=== PATIENT | female | born 1975 | race Two or more races ===

== ENCOUNTER 2025-04-26 23:18 | Inpatient (IN) | payer MEDICAID, OTHER ==
[~2025-04-26] VITALS: Ht 157.5 cm; Wt 98.5 kg
[2025-04-27] VITALS (7 sets, daily range): BP systolic 139–181; BP diastolic 9–96; PULSE 72–104; RESP 16–20; TEMP 97.7–99.5; O2SAT 95–98
[2025-04-27 00:03] LABS: Basophils # (auto) 0 10 ^3/uL (0-0.2); Basophils % (auto) 0.2 % (0.0-2.0); Eosinophils # (auto) 0 10 ^3/uL (0-0.8); Eosinophils % (auto) 0.2 % (0.0-7.0); Hematocrit 43.8 % (36.0-46.0); Hemoglobin 14.7 g/dL (12.2-16.2); Lymphocytes # (auto) 1.2 10 ^3/uL (0.4-5.4); Mean Corpuscular Hemoglobin 29.1 pg (28.0-32.0); Mean Corpuscular Hgb Conc. 33.6 g/dL (32.0-36.0); Mean Corpuscular Volume 86.6 fL (80.0-100.0); Monocytes % (auto) 7.3 % (0.0-12.0); Neutrophils # (auto) 11.4 10 ^3/uL (1.6-8.6); Neutrophils % (auto) 83.3 % (37.0-80.0); Platelet Count (auto) 245 10^3/uL (140-450); Red Blood Cells 5.06 10^6/uL (4.0-5.20); Red Cell Distribution Width 14.2 % (11.8-14.3); White Blood Cell 13.7 10^3/uL (4.4-10.8)
--- NOTE | 2025-04-27 00:25 | ED.PDOC ---
GI ASSESSMENT HPI Comments HPI: Poor Historian. Daughter at bedside helping with translation 49-year-old female presents to emergency department for sudden onset of epigastric pain radiating to the left flank area constant with the associated nausea and vomiting nonbilious nonbloody. Onset of symptoms around 8:00 p.m.. Not related to food. No alleviating or precipitating factors. However triage no suggest that the patient has increased urinary frequency and pain worsens after meals which is not what the patient and her daughter communicated to me. Past Medical History: Diabetes, hypertension Past Surgical History: REVIEW OF SYSTEMS: CONSTITUTIONAL: Denies acute: fever, diaphoresis, chills, generalized weakness. HEAD: Denies acute: headache, photophobia Eyes: Denies acute: Double vision, vision loss, eye pain, eye discharge. EARS: Denies acute: tinnitus, hearing loss, ear discharge, ear pain, THROAT: Denies acute: sore throat, swelling, difficulty swallowing , pain with swallowing, change in voice. NECK: Denies acute: neck pain, neck swelling, stiff neck. HEART: Denies acute : chest pain, palpitations, LUNGS: Denies acute: SOB, wheezing, cough, hemoptysis ABDOMEN: Denies acute: abdominal pain, Nausea, Vomiting, diarrhea, melena , hematemesis, hematochezia SKIN: Denies acute: rash, redness, lesions, itchiness. EXTREMITIES: Denies acute: calf pain, numbness, tingling, weakness, denies pain in extremity. Denies acute: Low back pain. Neuro: Denies acute: focal neurological deficit, motor or sensory focal neurological deficit, tremors, seizure like activity, confusion, dizziness, change in mental status, loss of bowel or bladder function, cauda equina like symptoms. : Denies acute: dysuria, hematuria, flank pain, increase in urinary frequency. PSYCH: Denies acute: hallucination, suicidal ideation, homicidal ideation. FEMALE: Denies acute: abnormal vaginal bleeding, foul odor, unusual discharge. PHYSICAL EXAM: General: ----moderate----acute distress, awake and alert. Head: normocephalic, atraumatic. Neck: supple, trachea is midline, no swelling. Throat: Normal phonation. Eyes:, no erythema, no purulent discharge, no proptosis, no icterus. Heart: regular rate, regular rhythm, no significant murmur appreciated. Lungs: no apparent respiratory distress, Able to speak in full sentences. No wheezing, no rhonchi, no crackles. No stridors Clear to auscultation bilaterally. Abdomen: Epigastric tender to palpation, non distended, soft, no guarding, no rebound, + bowel sounds. Neuro: Awake, Alert, oriented to name, self, situation, follows commands GCS=15. Speech is normal. Skin: no petechia, no purpura, no cyanosis, non-pale, not jaundice. Lower extremities: --no - Pitting edema no deformity, no focal swelling, no calf TTP. Makes eye contact. moves all four extremities. Face: no apparent facial droop. Left CVA tenderness to percussion Ambulating in the ED independently. ED COURSE: Chief Complaint: Abdominal Pain Time Seen by MD: 23:34 Reviewed Notes: Nurses Notes, Allergies Allergies: Coded Allergies: Penicillins (Verified Allergy, Unknown, 04/26/25) Information Source: Patient Mode of Arrival: Ambulatory Was a procedure done? Was a procedure done?: No GI differential Dx Differential Diagnosis: Other (DDX include Diverticulitis, colitis, gastroenteritis, acute abdomen, SBO, enteritis, constipation, volvulus, appendicitis, Gallbladder disease, choledocolithiasis, ascending cholangitis, pancreatitis, intraAbdominal mass/neoplasm, hepatitis, UTI, pylonephritis, kidney stone, aneurysm, dissection, Inflammatory bowel disease, gastroparesis, ischemic bowel, ovarian torsion, ovarian cyst/mass, tubo-ovarian abscess, , ectopic , PID, STD.) X-Ray, Labs, Meds, VS Vital Signs Date Time Temp Pulse Resp B/P (MAP) Pulse Ox O2 Delivery O2 Flow Rate FiO2 04/26/25 23:48 97.7 100 22 151/100 (117) 98 97.7 Lab Test 04/27/25 00:17 04/26/25 23:46 04/26/25 00:00 Range/Units Troponin I High Sensitivity 6 6 </=34 ng/L White Blood Count 13.7 H 4.4-10.8 10^3/uL Red Blood Count 5.06 4.0-5.20 10^6/uL Hemoglobin 14.7 12.2-16.2 g/dL Hematocrit 43.8 36.0-46.0 % Mean Corpuscular Volume 86.6 80.0-100.0 fL Mean Corpuscular Hemoglobin 29.1 28.0-32.0 pg Mean Corpuscular Hemoglobin Concent 33.6 32.0-36.0 g/dL Red Cell Distribution Width 14.2 11.8-14.3 % Platelet Count 245 140-450 10^3/uL Mean Platelet Volume 8.2 6.9-10.8 fL Neutrophils (%) (Auto) 83.3 H 37.0-80.0 % Lymphocytes (%) (Auto) 9.0 L 10.0-50.0 % Monocytes (%) (Auto) 7.3 0.0-12.0 % Eosinophils (%) (Auto) 0.2 0.0-7.0 % Basophils (%) (Auto) 0.2 0.0-2.0 % Neutrophils # (Auto) 11.4 H 1.6-8.6 10 ^3/uL Lymphocytes # (Auto) 1.2 0.4-5.4 10 ^3/uL Monocytes # (Auto) 1.0 0-1.3 10 ^3/uL Eosinophils # (Auto) 0 0-0.8 10 ^3/uL Basophils # (Auto) 0 0-0.2 10 ^3/uL Nucleated Red Blood Cells 0.0 % Sodium Level 139 136-145 mmol/L Potassium Level 4.4 3.5-5.1 mmol/L Chloride Level 103 98-107 mmol/L Carbon Dioxide Level 26 20-31 mmol/L Anion Gap 10 5-15 Blood Urea Nitrogen 19 9-23 mg/dL Creatinine 0.63 0.550-1.02 mg/dL Glomerular Filtration Rate Calc 108 >90 mL/min BUN/Creatinine Ratio 30.2 H 10.0-20.0 Serum Glucose 215 H 74-106 mg/dL Lactic Acid Level 1.8 0.4-2.0 mmol/L Calcium Level 9.5 8.7-10.4 mg/dL Total Bilirubin 1.5 H 0.2-1.0 mg/dL Aspartate Amino Transferase (AST) 136 H 13-40 U/L Alanine Aminotransferase (ALT) 156 H 7-40 U/L Alkaline Phosphatase 455 H 46-116 U/L Total Protein 7.1 5.7-8.2 g/dL Albumin 4.3 3.2-4.8 g/dL Lipase > 3500 H 12-53 U/L Urine Color Yellow Yellow Urine Clarity Turbid H Clear Urine pH 5.0 5.0-9.0 Urine Specific [place] 1.010 1.001-1.035 Urine Protein Negative Negative Urine Ketones 1+ H Negative Urine Blood Negative Negative /uL Urine Nitrite Negative Negative Urine Bilirubin Negative Negative Urine Urobilinogen Normal Negative mg/dL Urine Leukocyte Esterase Negative Negative /uL Urine RBC None seen 0 - 4 /hpf Urine Microscopic WBC 1 0-5 /HPF Urine Squamous Epithelial Cells Few <5 /hpf Urine Bacteria Few H None Seen /hpf Urine Mucus Few None Seen Urine Glucose Normal Normal mg/dL Current Medications Medications (Trade) Dose Ordered Sig/Mariella Route Start Time Stop Time Status Last Admin Ceftriaxone Sodium 50 ml @ 100 mls/hr ONCE ONCE IV 04/27/25 00:15 04/27/25 00:44 DC 04/27/25 00:51 Sodium Chloride 1,000 ml @ 1,000 mls/hr Q1H ONCE IV 04/27/25 00:15 04/27/25 01:14 DC 04/27/25 00:51 Ondansetron HCl (Zofran) 8 mg ONCE ONCE IV 04/27/25 00:30 04/27/25 00:31 DC 04/27/25 00:50 Lidocaine HCl (Xylocaine 2% Viscous) 10 ml ONCE ONCE PO 04/27/25 00:30 04/27/25 00:31 DC 04/27/25 00:49 [place] [id number] Ph: [phone] DIAGNOSTIC IMAGING Diagnostic Imaging Report : [id number] S[address]: [address]: [id number] UNIT: [id number] : 1975 LOC: ER ROOM / BED: / AGE / SEX: 49 / F ADM STATUS: REG ER SERVICE 4502 ORDERING PHYSICIAN: PATRICIA YUAN DO PROCEDURE(s): ABPL - CT AB PEL WO CON-NO ORAL OR IV REASON: abd pain ORDER NUMBER(s): [id number], ACCESSION NUMBER(s): [id number] Exam: CT CT AB PEL WO CON-NO ORAL OR IV History: abd pain Comparison Study: None Technique: Multidetector spiral CT of the abdomen was performed from lung bases to pubic symphysis. Imaging was performed without IV contrast. Axial, coronal and sagittal multiplanar reformats were obtained from the axial data set by the technologist. Radiation Dose : 1. Abdomen/Pelvis: CTDIvol 26 mGy, DLP 1564 mGy*cm. Findings: Evaluation of solid organs is limited due to lack of intravenous contrast use. Lung Bases: No acute or significant lung base finding. Normal heart size. No pleural or pericardial effusion. Liver: The liver is normal in size. No focal lesions. Gallbladder and Biliary Tree: Common bile duct measuring 1.7 cm Spleen: Unremarkable Pancreas: Edema and adjacent fat stranding involving the pancreatic body / tail. Adrenal Glands: Unremarkable Kidneys: Minimal bilateral hydronephrosis without evidence of ureteral stones. Bladder: Grossly unremarkable for degree of distention. Bowel: The stomach is grossly normal in appearance. Small bowel and colon are normal in caliber and distribution. The appendix is not visualized; however, no secondary findings of acute appendicitis identified. Ascites: Absent Lymphadenopathy: Large lymph node adjacent to the hepatic hilum measuring 2.3 cm. Abdominal Wall and Mesentery: Unremarkable. Vasculature: The visualized abdominal aorta is normal in size and caliber. Evaluation of abdominal and pelvic vessels is limited due to lack of intravenous contrast. Pelvic Organs: Unremarkable Musculoskeletal: No aggressive focal bony lesions, acute fractures or dislocation. IMPRESSION: The pancreatic body / tail demonstrates edema and adjacent fat stranding concerning for pancreatitis. There is also dilation of the common bile duct measuring 1.7 cm which raises concern for possible gallstone pancreatitis. Evaluation with HIDA scan or MRCP to evaluate the patency of the common bile duct. Mild bilateral hydronephrosis without evidence of ureteral stones. Question whether this is due to the inflammatory effects with the adjacent pancreatitis versus bilateral peripelvic cysts mimicking hydronephrosis. ATED BY: DULCE SY DO DICTATED DATE/TIME: 04/27/2543 SIGNED BY: DULCE SY DO SIGNED DATE/TIME: 04/27/2543 CC: Time of 1ST Reevaluation: 00:48 Reevaluation 1ST: Unchanged Patient Education/Counseling: Diagnosis, Treatment Family Education/Counseling: Diagnosis, Treatment Comments Patient presented with the above HPI.----abdominal pain--workup was initiated. patient was found with the above mentioned diagnosis. the following medications were ordered: please refer to order lists of meds and tests obtained by myself Dr. Yuan. Patient ED course and VS have been stabilized. Patient has been reassessed in the ED and remained in a stable condition. Pertinent incidental findings were discussed with the patient and/or family. Patient/family voices understanding and is agreeable with plan. Patient has been observed in the ED adequate length of time to insure improvement/stability. Escalation of care considered: Consideration of escalation to observation or admission Patient was started on antibiotics. Patient is allergic to penicillin. Patient was ADMITTED to the medicine team for further evaluation and treatment of their presentation. All the reports of any imaging studies that were ordered by myself were reviewed by myself. Departure 1 Departure Time of Disposition: 00:48 Impression: Primary Impression: Acute pancreatitis Additional Impression: Elevated LFTs Disposition: ADMITTED INPATIENT Admit to: Tele Condition: Guarded Critical Care Note Critical Care Time?: Yes (35 min-critical care time only) PATRICIA YUAN DO Apr 27, 2025 00:25
[2025-04-27 00:26] LABS: Albumin 4.3 g/dL (3.2-4.8); Anion Gap 10 (5-15); BUN/Creatinine Ratio 30.2 (10.0-20.0); Blood Urea Nitrogen 19 mg/dL (9-23); Calcium 9.5 mg/dL (8.7-10.4); Carbon Dioxide 26 mmol/L (20-31); Chloride 103 mmol/L (98-107); Potassium 4.4 mmol/L (3.5-5.1); Sodium 139 mmol/L (136-145); Total Protein 7.1 g/dL (5.7-8.2)
[2025-04-27 00:44] LABS: Alanine Aminotransferase 156 U/L (7-40); Alkaline Phosphatase 455 U/L (46-116); Aspartate Aminotransferase 136 U/L (13-40); Bilirubin, Total 1.5 mg/dL (0.2-1.0); Glucose 215 mg/dL (74-106); Lipase > 3500 U/L (12-53)
--- NOTE | 2025-04-27 00:46 | DVH ---
Exam: CT CT AB PEL WO CON-NO ORAL OR IV History: abd pain Comparison Study: None Technique: Multidetector spiral CT of the abdomen was performed from lung bases to pubic symphysis. I maging was performed without IV contrast. Axial, coronal and sagittal multiplanar reformats were obta ined from the axial data set by the technologist. Radiation Dose : 1. Abdomen/Pelvis: CTDIvol 26 mGy, DLP 1564 mGy*cm. Findings: Evaluation of solid organs is limited due to lack of intravenous contrast use. Lung Bases: No acute or significant lung base finding. Normal heart size. No pleural or pericardial effusion. Liver: The liver is normal in size. No focal lesions. Gallbladder and Biliary Tree: Common bile duct measuring 1.7 cm Spleen: Unremarkable Pancreas: Edema and adjacent fat stranding involving the pancreatic body / tail. Adrenal Glands: Unremarkable Kidneys: Minimal bilateral hydronephrosis without evidence of ureteral stones. Bladder: Grossly unremarkable for degree of distention. Bowel: The stomach is grossly normal in appearance. Small bowel and colon are normal in caliber and d istribution. The appendix is not visualized; however, no secondary findings of acute appendicitis elly ntified. Ascites: Absent Lymphadenopathy: Large lymph node adjacent to the hepatic hilum measuring 2.3 cm. Abdominal Wall and Mesentery: Unremarkable. Vasculature: The visualized abdominal aorta is normal in size and caliber. Evaluation of abdominal a nd pelvic vessels is limited due to lack of intravenous contrast. Pelvic Organs: Unremarkable Musculoskeletal: No aggressive focal bony lesions, acute fractures or dislocation. IMPRESSION: The pancreatic body / tail demonstrates edema and adjacent fat stranding concerning for pancreatitis. There is also dilation of the common bile duct measuring 1.7 cm which raises concern for possible g allstone pancreatitis. Evaluation with HIDA scan or MRCP to evaluate the patency of the common bile d uct. Mild bilateral hydronephrosis without evidence of ureteral stones. Question whether this is due to th e inflammatory effects with the adjacent pancreatitis versus bilateral peripelvic cysts mimicking hyd ronephrosis.
[2025-04-27] MEDS: LIDOCAINE VISCOUS 2% 15ML UD PO ONE (00:49)
[2025-04-27] MEDS: ONDANSETRON HCL 4 MG/2 ML VIAL IV ONE (00:50)
[2025-04-27] MEDS: SODIUM CHLORIDE 0.9% 1,000 ML IV ONE ×2 (00:51→05:17)
[2025-04-27] MEDS: cefTRIAXone 1GM/50ML D5W 50 ML IV ONE (00:51)
[2025-04-27] MEDS ORDERED: PIPERACILLIN-TAZOB 3.375GM 100 ML IV ONE (01:00)
[2025-04-27 01:26] LABS: Urine Bacteria FEW /hpf (None Seen); Urine Blood Negative /uL (Negative); Urine Clarity Turbid (Clear); Urine Color Yellow (Yellow); Urine Mucus FEW (None Seen); Urine Protein, UAD Negative (Negative); Urine Squamous Epithelial Cell FEW /hpf (<5); Urine Urobilinogen Normal (Negative); Urine WBC 1 /HPF (0-5)
[2025-04-27] MEDS: fentaNYL CITRATE 100 MCG/2 ML VL IV ONE (05:02)
[2025-04-27] MEDS ORDERED: DEXTROSE (50%) 50ML SYRG IV PRN (07:30)
[2025-04-27] MEDS ORDERED: VANCOMYCIN PER PHARMACY 0 MG IV SCH (07:30)
[2025-04-27] MEDS ORDERED: NITROGLYCERIN 0.4 MG SL TAB SL PRN (07:30)
--- NOTE | 2025-04-27 08:04 | DVHHP2 ---
History of Present Illness Reason for Visit: Abdominal pain History of Present Illness Niecy Toledo is a 49-year-old female with past medical history of hypertension, diabetes, and who presents to the ED with abdominal pain with nausea and vomiting. Patient states that the pain is currently 6/10 sharp and constant. She also states that it radiates to her right lower back. Patient's 2 daughters are at the bedside Della and [place]. Patient reports that she has been vomiting orange liquid after the fentanyl was given today. Patient denies any chest pain, shortness of breath, fever, chills, recent sick contacts, recent travels, recent ingestion of spoiled food, diarrhea, recent trauma or injury, lightheadedness, weakness, or dizziness. Cardiovascular: HTN Endocrine: Diabetes Past Surgical History: Family History: DM, Hypertension, Other (Dad with diabetes and mom with hypertension) Smoke: No ALCOHOL: none Drugs: None Lives: with Family Domestic Violence: Neg Review of Systems Gastrointestinal: Nausea, Vomiting, Abdominal Pain Allergies: Coded Allergies: Penicillins (Verified Allergy, Unknown, 04/26/25) Exam Vital Signs Vital Signs Date Time Temp Pulse Resp B/P (MAP) Pulse Ox O2 Delivery O2 Flow Rate FiO2 04/27/25 07:18 97.9 69 18 185/80 (115) 98 97.9 04/27/25 05:23 Room Air* 0 21 General Appearance: Alert, Oriented X3, Cooperative, mild distress HEENT: Atraumatic, PERRLA, EOMI, Mucous membr. moist/pink Respiratory: Clear to auscultation, Normal air movement Cardiovascular: Regular rate, Normal S1, Normal S2, No murmurs Abdominal: Soft Extremities: Normal pulses Skin: No significant lesion Neuro: Normal gait, Normal speech, Strength at 5/5 X4 ext, Normal tone, Sensation intact Psych/Mental Status: Mental status NL, Mood NL Labs/Xrays Labs Test 04/27/25 00:17 04/26/25 23:46 04/26/25 00:00 Range/Units Troponin I High Sensitivity 6 </=34 ng/L White Blood Count 13.7 H 4.4-10.8 10^3/uL Red Blood Count 5.06 4.0-5.20 10^6/uL Hemoglobin 14.7 12.2-16.2 g/dL Hematocrit 43.8 36.0-46.0 % Mean Corpuscular Volume 86.6 80.0-100.0 fL Mean Corpuscular Hemoglobin 29.1 28.0-32.0 pg Mean Corpuscular Hemoglobin Concent 33.6 32.0-36.0 g/dL Red Cell Distribution Width 14.2 11.8-14.3 % Platelet Count 245 140-450 10^3/uL Mean Platelet Volume 8.2 6.9-10.8 fL Neutrophils (%) (Auto) 83.3 H 37.0-80.0 % Lymphocytes (%) (Auto) 9.0 L 10.0-50.0 % Monocytes (%) (Auto) 7.3 0.0-12.0 % Eosinophils (%) (Auto) 0.2 0.0-7.0 % Basophils (%) (Auto) 0.2 0.0-2.0 % Neutrophils # (Auto) 11.4 H 1.6-8.6 10 ^3/uL Lymphocytes # (Auto) 1.2 0.4-5.4 10 ^3/uL Monocytes # (Auto) 1.0 0-1.3 10 ^3/uL Eosinophils # (Auto) 0 0-0.8 10 ^3/uL Basophils # (Auto) 0 0-0.2 10 ^3/uL Nucleated Red Blood Cells 0.0 % Sodium Level 139 136-145 mmol/L Potassium Level 4.4 3.5-5.1 mmol/L Chloride Level 103 98-107 mmol/L Carbon Dioxide Level 26 20-31 mmol/L Anion Gap 10 5-15 Blood Urea Nitrogen 19 9-23 mg/dL Creatinine 0.63 0.550-1.02 mg/dL Glomerular Filtration Rate Calc 108 >90 mL/min BUN/Creatinine Ratio 30.2 H 10.0-20.0 Serum Glucose 215 H 74-106 mg/dL Lactic Acid Level 1.8 0.4-2.0 mmol/L Calcium Level 9.5 8.7-10.4 mg/dL Total Bilirubin 1.5 H 0.2-1.0 mg/dL Aspartate Amino Transferase (AST) 136 H 13-40 U/L Alanine Aminotransferase (ALT) 156 H 7-40 U/L Alkaline Phosphatase 455 H 46-116 U/L Total Protein 7.1 5.7-8.2 g/dL Albumin 4.3 3.2-4.8 g/dL Lipase > 3500 H 12-53 U/L Urine Color Yellow Yellow Urine Clarity Turbid H Clear Urine pH 5.0 5.0-9.0 Urine Specific [place] 1.010 1.001-1.035 Urine Protein Negative Negative Urine Ketones 1+ H Negative Urine Blood Negative Negative /uL Urine Nitrite Negative Negative Urine Bilirubin Negative Negative Urine Urobilinogen Normal Negative mg/dL Urine Leukocyte Esterase Negative Negative /uL Urine RBC None seen 0 - 4 /hpf Urine Microscopic WBC 1 0-5 /HPF Urine Squamous Epithelial Cells Few <5 /hpf Urine Bacteria Few H None Seen /hpf Urine Mucus Few None Seen Urine Glucose Normal Normal mg/dL Exam: CT CT AB PEL WO CON-NO ORAL OR IV History: abd pain Comparison Study: None Technique: Multidetector spiral CT of the abdomen was performed from lung bases to pubic symphysis. Imaging was performed without IV contrast. Axial, coronal and sagittal multiplanar reformats were obtained from the axial data set by the technologist. Radiation Dose : 1. Abdomen/Pelvis: CTDIvol 26 mGy, DLP 1564 mGy*cm. Findings: Evaluation of solid organs is limited due to lack of intravenous contrast use. Lung Bases: No acute or significant lung base finding. Normal heart size. No pleural or pericardial effusion. Liver: The liver is normal in size. No focal lesions. Gallbladder and Biliary Tree: Common bile duct measuring 1.7 cm Spleen: Unremarkable Pancreas: Edema and adjacent fat stranding involving the pancreatic body / tail. Adrenal Glands: Unremarkable Kidneys: Minimal bilateral hydronephrosis without evidence of ureteral stones. Bladder: Grossly unremarkable for degree of distention. Bowel: The stomach is grossly normal in appearance. Small bowel and colon are normal in caliber and distribution. The appendix is not visualized; however, no secondary findings of acute appendicitis identified. Ascites: Absent Lymphadenopathy: Large lymph node adjacent to the hepatic hilum measuring 2.3 cm. Abdominal Wall and Mesentery: Unremarkable. Vasculature: The visualized abdominal aorta is normal in size and caliber. Evaluation of abdominal and pelvic vessels is limited due to lack of intravenous contrast. Pelvic Organs: Unremarkable Musculoskeletal: No aggressive focal bony lesions, acute fractures or dislocation. IMPRESSION: The pancreatic body / tail demonstrates edema and adjacent fat stranding concerning for pancreatitis. There is also dilation of the common bile duct measuring 1.7 cm which raises concern for possible gallstone pancreatitis. Evaluation with HIDA scan or MRCP to evaluate the patency of the common bile duct. Mild bilateral hydronephrosis without evidence of ureteral stones. Question whether this is due to the inflammatory effects with the adjacent pancreatitis versus bilateral peripelvic cysts mimicking hydronephrosis. Assessment/Plan Assessment/Plan Assessment Intractable abdominal pain likely due to pancreatitis Leukocytosis likely due to pancreatitis ?Possible gallstone pancreatitis noted on imaging Hyperlipasemia Transaminitis History of hypertension History of diabetes History of Plan Admit to med [facility] [place] UA Antiemetics Pain management IV antibiotics-vancomycin +Zosyn NAD ceftriaxone given Troponin negative x2 UA EKG CT abdomen and pelvis Hemoglobin A1c ISS and Accu-Cheks NPO for now IV fluids MRCP Per patient and her family no medications taken at home DVT prophylaxis-not indicated patient ambulating PUD prophylaxis-PPIs Discussed plan of care with patient, patient's daughter, and nurse Plan discussed with: Patient, Daughter My Orders Orders - [facility]IMINO [facility]BAJAL [facility] Procedure Category Date Status Time Mrcp Mri MRI 04/27/25 Logged 07:20 Piperacillin-Tazob PHA 04/27/25 Logged 3.375gm (Zosyn 3.375g 14:00 Vancomycin Per PHA 04/27/25 Logged Pharmacy 07:30 Admit ADMIT 04/27/25 Transmitted 07:20 Allergies MARGARETH 04/27/25 In Process 07:20 Code Status CODE 04/27/25 Transmitted 07:20 Hydrocodone-Acet PHA 04/27/25 Transmitted 5/325mg Tab ([place] 07:30 Ondansetron Hcl PHA 04/27/25 Transmitted (Zofran) 07:30 Complete Blood Count LAB 04/28/25 Verified 04:00 Comprehensive LAB 04/28/25 Verified Metabolic Panel 04:00 Npo (Nothing By DIET 04/27/25 Transmitted Mouth) Diet Breakfast Acetaminophen Tablet PHA 04/27/25 Transmitted (Tylenol Tablet) 07:30 Morphine Sulfate PHA 04/27/25 Transmitted Injection 07:30 Sequential MARGARETH 04/27/25 In Process Compression Device Nitroglycerin PHA 04/27/25 Transmitted Sublingual (Ntrostat 07:30 Morphine Sulfate PHA 04/27/25 Transmitted Injection 07:30 Stat Ekg For Chest MARGARETH 04/27/25 In Process Pain 07:20 Notify Of Changes MARGARETH 04/27/25 In Process From Base 07:20 Timber Framer Helper For [facility] 04/27/25 In Process 24 Hours 07:20 Emergency Dysrhythmia [facility] 04/27/25 In Process Protocol 07:20 Rhythm Strips Once [facility] 04/27/25 In Process Every Shift 07:20 Oxygen By Nasal RT 04/27/25 Transmitted Cannula 07:20 Lactated Ringers Lr PHA 04/27/25 Transmitted 07:30 Glucose Blood [facility] 04/27/25 Logged (Accu-Chek Comfort 12:00 Insulin R (Human) PHA 04/27/25 Logged (Insulin R) 12:00 Dextrose 50% Syringe PHA 04/27/25 Logged 07:30 Hemoglobin A1c LAB 04/27/25 Logged 07:20 Date of Service: Apr 27, 2025 Billing Provider: MAXIMINO CARBAJAL Common Visit Codes: [id number] INP/OBS CARE (HIGH) MAXIMINO CARBAJAL Apr 27, 2025 08:04
[2025-04-27] MEDS ORDERED: MORPHINE SULFATE 4 MG/ML SYR/VIAL IV PRN (08:30)
[2025-04-27] MEDS: MORPHINE SULFATE 4 MG/ML SYR/VIAL IV PRN (09:24)
--- NOTE | 2025-04-27 09:34 | DVH ---
MRI MRCP MRI HISTORY: gallstones COMPARISON: 04/26 PROCEDURE: Multiplanar multisequence MRI images were obtained of the abdomen without intravenous cont rast Additional MIPS were obtained of the biliary system. FINDINGS: Bile ducts: -Intrahepatic ducts: dilated. -Extrahepatic ducts: dilated. -Common bile duct: dilated. -Filling defects: Yes -Stricture: None. Gallbladder: Yes gallstones. Pancreas: Pancreatic duct: No ductal dilatation. Lesions: None. Liver: Signal intensity: Homogenous. Contour: Smooth. Size: Normal. Lesions: No focal liver lesion. ADDITIONAL FINDINGS: Lung base: Normal. Pancreas: There is [id number] peripancreatic edema. Spleen:Normal. Bowel: Normal. Adrenal glands:Normal. Kidneys and ureters:Normal. Lymph nodes:Normal. Peritoneum:Normal. Vessels: Normal. Abdominal wall: Normal. Bone: No aggressive bone lesions IMPRESSION: There is choledocholithiasis with dilation of the common bile duct to 1.2 cm and mild left intrahepat ic bile duct dilation. Cholelithiasis is visualized. [id number] peripancreatic edema can be see n with pancreatitis.
[2025-04-27] MEDS: LACTATED RINGER'S 1,000 ML IV SCH (10:05)
[2025-04-27] MEDS: PIPERACILLIN-TAZOB 3.375GM 100 ML IV SCH (10:14)
[2025-04-27] MEDS: HYDROcodone-ACET 5/325MG TAB PO PRN (12:51)
[2025-04-27] MEDS: InsuLIN REG 1unit/0.01ml Soln (100units/ml) SC SCH (12:52)
[2025-04-27] MEDS: ACCU-CHEK COMFORT CURVE STRIP VI SCH (12:54)
[2025-04-27] MEDS: VANCOMYCIN 1.5GM/300ML 300 ML IV ONE (12:54)
[2025-04-27] MEDS ORDERED: NIFE90TA75 PO (17:32)
[2025-04-27] MEDS ORDERED: ASPI1TAB19 PO (17:32)
[2025-04-27] MEDS ORDERED: GABA-1308 PO (17:32)
[2025-04-27] MEDS ORDERED: LISI20TA56 PO (17:32)
[2025-04-27] MEDS ORDERED: METF-370 PO (17:38)
[2025-04-27] MEDS ORDERED: ATOR-507 PO (17:38)
[2025-04-27] MEDS ORDERED: CLON0.1T TD (17:38)
[2025-04-27] MEDS ORDERED: PIO30T PO (17:38)
[2025-04-27] MEDS: ACETAMINOPHEN 325 MG TAB PO PRN (19:09)
[2025-04-28] VITALS (7 sets, daily range): BP systolic 118–148; BP diastolic 80–94; PULSE 81–97; RESP 17–19; TEMP 98–100.1; O2SAT 91–98
[2025-04-28] MEDS: ONDANSETRON HCL 4 MG/2 ML VIAL IV PRN (00:37)
[2025-04-28] MEDS: HYDROmorphone HCL 2 MG/ML VL/or syr IV PRN ×2 (00:38→06:58)
[2025-04-28] MEDS: VANCOMYCIN 1.25GM/250ML 250 ML IV SCH (01:11)
[2025-04-28 06:19] LABS: Basophils # (auto) 0 10 ^3/uL (0-0.2); Basophils % (auto) 0.3 % (0.0-2.0); Eosinophils # (auto) 0.1 10 ^3/uL (0-0.8); Eosinophils % (auto) 0.8 % (0.0-7.0); Hematocrit 41.3 % (36.0-46.0); Lymphocytes # (auto) 1.2 10 ^3/uL (0.4-5.4); Lymphocytes % (auto) 12.6 % (10.0-50.0); Mean Corpuscular Hemoglobin 29.6 pg (28.0-32.0); Mean Corpuscular Hgb Conc. 33.9 g/dL (32.0-36.0); Mean Corpuscular Volume 87.3 fL (80.0-100.0); Monocytes # (auto) 0.6 10 ^3/uL (0-1.3); Monocytes % (auto) 6.6 % (0.0-12.0); Neutrophils # (auto) 7.4 10 ^3/uL (1.6-8.6); Neutrophils % (auto) 79.7 % (37.0-80.0); Nucleated Red Blood Cells % 0.1 %; Platelet Count (auto) 196 10^3/uL (140-450); Red Blood Cells 4.73 10^6/uL (4.0-5.20); Red Cell Distribution Width 14.6 % (11.8-14.3); White Blood Cell 9.3 10^3/uL (4.4-10.8)
[2025-04-28 06:37] LABS: Alanine Aminotransferase 131 U/L (7-40); Alkaline Phosphatase 460 U/L (46-116); Anion Gap 8 (5-15); BUN/Creatinine Ratio 28.2 (10.0-20.0); Blood Urea Nitrogen 11 mg/dL (9-23); Calcium 9.2 mg/dL (8.7-10.4); Carbon Dioxide 25 mmol/L (20-31); Chloride 105 mmol/L (98-107); Glucose 143 mg/dL (74-106); Potassium 3.3 mmol/L (3.5-5.1); Sodium 138 mmol/L (136-145); Total Protein 6.1 g/dL (5.7-8.2)
[2025-04-28 06:38] LABS: Albumin 3.6 g/dL (3.2-4.8)
[2025-04-28 06:39] LABS: Aspartate Aminotransferase 95 U/L (13-40)
[2025-04-28 06:40] LABS: Bilirubin, Total 5.8 mg/dL (0.2-1.0)
--- NOTE | 2025-04-28 14:02 | DVHPN2 ---
Reviewed: Care Plan, H&P, Labs, Medications, Previous Orders, Radiology Changes from previous H/P or p: No Changes Gastrointestinal: Nausea, Vomiting, Abdominal Pain Objective Vitals Vital Signs Date Time Temp Pulse Resp B/P (MAP) Pulse Ox O2 Delivery O2 Flow Rate FiO2 04/28/25 12:00 92 18 132/86 04/28/25 09:00 98.7 95 98.7 04/28/25 07:45 Room Air* 0 21 Intake/Output Intake and Output 04/28/25 07:00 Intake Total 1500 ml Output Total 25 ml Balance 1475 ml Intake Oral 0 ml IV Total 1500 ml Output Emesis 25 ml # Voids 2 Medications Current Medications Medications Dose Ordered Sig/Mariella Route Start Time Stop Time Status Last Admin Dose Admin Piperacillin Sod/ Tazobactam Sod 100 ml @ 25 mls/hr Q8H IV 04/27/25 09:00 04/28/25 09:20 25 MLS/HR Vancomycin HCl 0 ml @ 0 mls/hr UD IV 04/27/25 07:30 Acetaminophen/ Hydrocodone Bitart 1 tab Q4HP PRN PO 04/27/25 07:30 Hold 04/27/25 12:51 1 TAB Ondansetron HCl 4 mg Q4HP PRN IV 04/27/25 07:30 04/28/25 11:27 4 MG Acetaminophen 650 mg Q6HP PRN PO 04/27/25 07:30 04/27/25 19:09 650 MG Nitroglycerin 0.4 mg Q5MINP PRN SL 04/27/25 07:30 Morphine Sulfate 2 mg Q30M PRN IV 04/27/25 08:30 Lactated Ringer's 1,000 ml @ 150 mls/hr Q6H40M IV 04/27/25 07:30 04/28/25 12:49 150 MLS/HR Diagnostic Test (Pha) 1 strip Q6HR 04/27/25 12:00 04/28/25 12:12 1 STRIP Insulin Human Regular Q6HR SC 04/27/25 12:00 04/28/25 06:32 2 UNITS Dextrose 50 ml UD PRN IV 04/27/25 07:30 Hydromorphone HCl 1 mg Q4HPRN PRN IV 04/27/25 15:45 04/28/25 00:38 1 MG Hydromorphone HCl 0.5 mg Q4HPRN PRN IV 04/27/25 15:45 04/28/25 11:30 0.5 MG Vancomycin HCl 250 ml @ 200 mls/hr Q12H IV 04/28/25 01:00 04/28/25 01:11 200 MLS/HR Laboratory Results Laboratory Tests 04/28/25 05:15 Chemistry Test 04/28/25 05:15 Albumin 3.6 g/dL (3.2-4.8) Calcium Level 9.2 mg/dL (8.7-10.4) Total Protein 6.1 g/dL (5.7-8.2) LFT Test 04/28/25 05:15 Alanine Aminotransferase (ALT) 131 U/L (7-40) H Alkaline Phosphatase 460 U/L (46-116) H Aspartate Amino Transferase (AST) 95 U/L (13-40) H Total Bilirubin 5.8 mg/dL (0.2-1.0) H Urinalysis Test 04/26/25 00:00 Urine Color Yellow (Yellow) Urine Clarity Turbid (Clear) H Urine pH 5.0 (5.0-9.0) Urine Specific [place] 1.010 (1.001-1.035) Urine Protein Negative (Negative) Urine Ketones 1+ (Negative) H Urine Blood Negative /uL (Negative) Urine Nitrite Negative (Negative) Urine Bilirubin Negative (Negative) Urine Urobilinogen Normal mg/dL (Negative) Urine Leukocyte Esterase Negative /uL (Negative) Urine RBC None seen /hpf (0 - 4) Urine Microscopic WBC 1 /HPF (0-5) Urine Squamous Epithelial Cells Few /hpf (<5) Urine Bacteria Few /hpf (None Seen) H Urine Mucus Few (None Seen) Urine Glucose Normal mg/dL (Normal) Labs and/or images reviewed: Labs reviewed by me, Image(s) reviewed by me Assessment/Plan Assessment/Plan Intractable abdominal pain likely due to pancreatitis Sepsis secondary to acute pancreatitis: Consult for GI Dr. David Kim Acute pancreatitis with lipase of 3500: Continue vancomycin Zosyn pantoprazole Possible gallstone pancreatitis Choledocholithiasis with dilatation of CBD 1.2 cm: Possible transfer to higher level of care, GI consult for Dr. David Kim Transaminitis Hypertension Diabetes: Insulin sliding scale Acute dehydration: IV fluid Plan discussed with: Patient Date of Service: Apr 28, 2025 Billing Provider: DEBBIE SHANE MD Common Visit Codes: [id number] INP/OBS CARE(HIGH) DEBBIE SHANE MD Apr 28, 2025 14:02
--- NOTE | 2025-04-28 15:53 | DVHINCON2 ---
Date of service: Apr 28, [address] Pizano Reason for Consultation Abdominal pain nausea vomiting possible pancreatitis from gallbladder disease. History of Present Illness This a 49-year-old female who is slightly on the obese side diabetes and hypertension admitted with complaints of abdominal pain nausea and vomiting the pain was very severe in the epigastrium as well as in the right lower back ra diation patient also severe vomiting and nausea and patient denied any unusual food ingestion No history of any ulcer disease or gallbladder disease or ulcer disease in the past In the ER CAT scan showed there was evidence of gallbladder disease with gal lstones and dilated bile ducts MRCP showing choledocholithiasis patient is jaundiced and has got abnormal liver enzymes also Past Medical History Hypertension diabetes Past Surgical History Family History: Diabetes mellitus in father Hypertension in mother Family History Non contributory except for diabetes Social History Denies smoking or drinking Allergies: Coded Allergies: Penicillins (Verified Allergy, Unknown, 04/26/25) Home Meds Reported Medications Clonidine Hydrochloride (Clonidine Hcl) 0.1 Mg Tab, 0.1 MG TD DAILY, TAB 04/27/25 Pioglitazone Hydrochloride (ACTOS TABLET) 30 Mg Tb, 1 TAB PO DAILY, #30 TAB 5 Refills 04/27/25 Metformin Hydrochloride (Metformin Hcl) 500 Mg Tab, 1000 MG PO BID for 30 Days, MG 04/27/25 Atorvastatin Calcium (Lipitor) 40 Mg Tab, 1 TAB PO QPM, #90 TAB 1 Refill 04/27/25 Lisinopril (Lisinopril) 20 Mg Tab, 20 MG PO BID for 30 Days, MG 04/27/25 Gabapentin (Gabapentin) 100 Mg Cap, 200 MG PO TID 04/27/25 Aspirin (Aspirin) 81 Mg Tab, 81 MG PO DAILY, TAB 04/27/25 Nifedipine (Nifedipine Er) 90 Mg Tab, 1 TAB PO DAILY, #30 TAB 5 Refills 04/27/25 Current Medications Current Medications Medications (Trade) Dose Ordered Sig/Mariella Route PRN Reason Start Time Stop Time Status Last Admin Hydromorphone HCl (Dilaudid Injection) 1 mg Q4HPRN PRN IV SEVERE PAIN (7-10 PAIN SCALE) 04/27/25 15:45 04/28/25 00:38 Hydromorphone HCl (Dilaudid Injection) 0.5 mg Q4HPRN PRN IV MODERATE PAIN (4-6 PAIN SCALE) 04/27/25 15:45 04/28/25 11:30 Vancomycin HCl 250 ml @ 200 mls/hr Q12H IV 04/28/25 01:00 04/28/25 01:11 Review of Systems Noncontributory Vital Signs Vital Signs Date Time Temp Pulse Resp B/P (MAP) Pulse Ox O2 Delivery O2 Flow Rate FiO2 04/28/25 13:00 98.2 97 18 143/89 (107) 96 98.2 04/28/25 07:45 Room Air* 0 21 Physical Exam Moderately Built slightly on the obese side uncomfortable with the abdominal pain HEENT examination scleral icterus Lungs are clear but occasional rhonchi Abdomen is slightly full moderate tenderness in the epigastrium and periumbilically no rigidity no guarding Bowel sounds normal no masses felt Extremities edema Neuro grossly intact Labs bilirubin is increased Lipase more than 3500 Alk phos is 455 ALT AST are increased BUN and creatinine are normal WBCs increased 13.[address] scan pancreatitis cholelithiasis dilated common bile duct MRCP dilated common bile duct with choledocholithiasis and hepatic duct dilatation Labs/Diagnostic Data Labs Test 04/28/25 12:01 04/28/25 05:15 04/27/25 00:17 04/26/25 23:46 Range/Units POC Glucose 141 H 70-106 mg/dl White Blood Count 9.3 # 4.4-10.8 10^3/uL Red Blood Count 4.73 4.0-5.20 10^6/uL Hemoglobin 14.0 12.2-16.2 g/dL Hematocrit 41.3 36.0-46.0 % Mean Corpuscular Volume 87.3 80.0-100.0 fL Mean Corpuscular Hemoglobin 29.6 28.0-32.0 pg Mean Corpuscular Hemoglobin Concent 33.9 32.0-36.0 g/dL Red Cell Distribution Width 14.6 H 11.8-14.3 % Platelet Count 196 140-450 10^3/uL Mean Platelet Volume 8.4 6.9-10.8 fL Neutrophils (%) (Auto) 79.7 37.0-80.0 % Lymphocytes (%) (Auto) 12.6 10.0-50.0 % Monocytes (%) (Auto) 6.6 0.0-12.0 % Eosinophils (%) (Auto) 0.8 0.0-7.0 % Basophils (%) (Auto) 0.3 0.0-2.0 % Neutrophils # (Auto) 7.4 1.6-8.6 10 ^3/uL Lymphocytes # (Auto) 1.2 0.4-5.4 10 ^3/uL Monocytes # (Auto) 0.6 0-1.3 10 ^3/uL Eosinophils # (Auto) 0.1 0-0.8 10 ^3/uL Basophils # (Auto) 0 0-0.2 10 ^3/uL Nucleated Red Blood Cells 0.1 % Sodium Level 138 136-145 mmol/L Potassium Level 3.3 L 3.5-5.1 mmol/L Chloride Level 105 98-107 mmol/L Carbon Dioxide Level 25 20-31 mmol/L Anion Gap 8 5-15 Blood Urea Nitrogen 11 9-23 mg/dL Creatinine 0.39 #L 0.550-1.02 mg/dL Glomerular Filtration Rate Calc 121 >90 mL/min BUN/Creatinine Ratio 28.2 H 10.0-20.0 Serum Glucose 143 H 74-106 mg/dL Calcium Level 9.2 8.7-10.4 mg/dL Total Bilirubin 5.8 H 0.2-1.0 mg/dL Aspartate Amino Transferase (AST) 95 H 13-40 U/L Alanine Aminotransferase (ALT) 131 H 7-40 U/L Alkaline Phosphatase 460 H 46-116 U/L Total Protein 6.1 5.7-8.2 g/dL Albumin 3.6 3.2-4.8 g/dL Troponin I High Sensitivity 6 </=34 ng/L Hemoglobin A1c 6.8 H <5.7 % A1C Lactic Acid Level 1.8 0.4-2.0 mmol/L Lipase > 3500 H 12-53 U/L Test 04/26/25 00:00 Range/Units Urine Color Yellow Yellow Urine Clarity Turbid H Clear Urine pH 5.0 5.0-9.0 Urine Specific [place] 1.010 1.001-1.035 Urine Protein Negative Negative Urine Ketones 1+ H Negative Urine Blood Negative Negative /uL Urine Nitrite Negative Negative Urine Bilirubin Negative Negative Urine Urobilinogen Normal Negative mg/dL Urine Leukocyte Esterase Negative Negative /uL Urine RBC None seen 0 - 4 /hpf Urine Microscopic WBC 1 0-5 /HPF Urine Squamous Epithelial Cells Few <5 /hpf Urine Bacteria Few H None Seen /hpf Urine Mucus Few None Seen Urine Glucose Normal Normal mg/dL Assessment 49-year-old with abdominal pains nausea vomiting patient has history of diabetes hypertension and obesity and history of pain was very severe and came to the ER CT scan showed cholelithiasis pancreatic choledocholithiasis possibly with dilated ducts and pancreatitis Clinical impression Pancreatitis secondary to gallbladder disease with choledocholithiasis and cholelithiasis Obesity hypertension and diabetes Patient has got severe pancreatitis now secondary to choledocholithiasis Plan/Recommendation This 49-year-old with obesity diabetes and hypertension has got cholelithiasis and choledocholithiasis with a dilated bile ducts and pancreatitis With Obesity and hypertension and diabetes she has a very high-risk and we will recommend ERCP as soon as possible with stone removal We will also need gallbladder surgery Recommend to transfer to higher level of care since no ERCP facilities are available at this hospital now Thank you Dr. Payne Plan discussed with: Patient KERRI PAYNE MD Apr 28, 2025 15:53
--- NOTE | 2025-04-28 15:57 | DVHDS2 ---
Discharge Summary Date of Admission Apr 27, 2025 at 07:20 Date of Discharge: Apr 28, 2025 Admitting Diagnosis Acute abdominal pain Wounds: None Labs/Diagnostic Data: Laboratory Results Test 04/28/25 12:01 04/28/25 05:15 04/27/25 00:17 04/26/25 23:46 POC Glucose 141 mg/dl (70-106) White Blood Count 9.3 10^3/uL (4.4-10.8) Red Blood Count 4.73 10^6/uL (4.0-5.20) Hemoglobin 14.0 g/dL (12.2-16.2) Hematocrit 41.3 % (36.0-46.0) Mean Corpuscular Volume 87.3 fL (80.0-100.0) Mean Corpuscular Hemoglobin 29.6 pg (28.0-32.0) Mean Corpuscular Hemoglobin Concent 33.9 g/dL (32.0-36.0) Red Cell Distribution Width 14.6 % (11.8-14.3) Platelet Count 196 10^3/uL (140-450) Mean Platelet Volume 8.4 fL (6.9-10.8) Neutrophils (%) (Auto) 79.7 % (37.0-80.0) Lymphocytes (%) (Auto) 12.6 % (10.0-50.0) Monocytes (%) (Auto) 6.6 % (0.0-12.0) Eosinophils (%) (Auto) 0.8 % (0.0-7.0) Basophils (%) (Auto) 0.3 % (0.0-2.0) Neutrophils # (Auto) 7.4 10 ^3/uL (1.6-8.6) Lymphocytes # (Auto) 1.2 10 ^3/uL (0.4-5.4) Monocytes # (Auto) 0.6 10 ^3/uL (0-1.3) Eosinophils # (Auto) 0.1 10 ^3/uL (0-0.8) Basophils # (Auto) 0 10 ^3/uL (0-0.2) Nucleated Red Blood Cells 0.1 % Sodium Level 138 mmol/L (136-145) Potassium Level 3.3 mmol/L (3.5-5.1) Chloride Level 105 mmol/L (98-107) Carbon Dioxide Level 25 mmol/L (20-31) Anion Gap 8 (5-15) Blood Urea Nitrogen 11 mg/dL (9-23) Creatinine 0.39 mg/dL (0.550-1.02) Glomerular Filtration Rate Calc 121 mL/min (>90) BUN/Creatinine Ratio 28.2 (10.0-20.0) Serum Glucose 143 mg/dL (74-106) Calcium Level 9.2 mg/dL (8.7-10.4) Total Bilirubin 5.8 mg/dL (0.2-1.0) Aspartate Amino Transferase (AST) 95 U/L (13-40) Alanine Aminotransferase (ALT) 131 U/L (7-40) Alkaline Phosphatase 460 U/L (46-116) Total Protein 6.1 g/dL (5.7-8.2) Albumin 3.6 g/dL (3.2-4.8) Troponin I High Sensitivity 6 ng/L (</=34) Hemoglobin A1c 6.8 % A1C (<5.7) Lactic Acid Level 1.8 mmol/L (0.4-2.0) Lipase > 3500 U/L (12-53) Test 04/26/25 00:00 Urine Color Yellow (Yellow) Urine Clarity Turbid (Clear) Urine pH 5.0 (5.0-9.0) Urine Specific [place] 1.010 (1.001-1.035) Urine Protein Negative (Negative) Urine Ketones 1+ (Negative) Urine Blood Negative /uL (Negative) Urine Nitrite Negative (Negative) Urine Bilirubin Negative (Negative) Urine Urobilinogen Normal mg/dL (Negative) Urine Leukocyte Esterase Negative /uL (Negative) Urine RBC None seen /hpf (0 - 4) Urine Microscopic WBC 1 /HPF (0-5) Urine Squamous Epithelial Cells Few /hpf (<5) Urine Bacteria Few /hpf (None Seen) Urine Mucus Few (None Seen) Urine Glucose Normal mg/dL (Normal) Other Laboratory Tests 04/28/25 05:15 Brief Hx & Hospital Course: 49-year-old female with a history of hypertension diabetes came in for severe abdominal pain found to have acute pancreatitis patient isn't sepsis with the elevated white count 13 K. lipase elevated more than 3500 CT abdomen pelvis without contrast showed acute pancreatitis CBD stones with a dilatation of CBD 1.2 cm and gallstones. GI consult for Dr. Nino advised stat transfer to higher level of care for ERCP. Patient was placed on vancomycin and Zosyn IV fluids and pain medications general condition poor patient is being transferred on a stat basis patient's daughter at the bedside. Discussed with the patient and the family about the diagnosis poor prognosis and stat transfer to higher level of care Consults/Reason for consult GI Dr. Nino Surgical consult for Dr. Lamont Kim pending Operations or Procedures CT abdomen pelvis without contrast MRCP Condition at Discharge: Poor Final Diagnosis/Problems List Intractable abdominal pain likely due to pancreatitis Sepsis secondary to acute pancreatitis: Consult for GI Dr. Nino appreciated advised stat transfer for higher level of care for ERCP Acute pancreatitis with lipase of 3500: Continue vancomycin Zosyn pantoprazole Possible gallstone pancreatitis Choledocholithiasis with dilatation of CBD 1.2 cm: Possible transfer to higher level of care, GI consult for Dr. David Balderrama Hypertension Diabetes: Insulin sliding scale Acute dehydration: IV fluid Discharge Disposition: Acute Care Facility Discharge Instruct/Medications Diet: See Comment Diet comment: NPO Activity: Light activity Follow Up/Referral: Follow up with the receiving hospital Medications: see list 39 (Time taken for discharge summary 39 minutes) Discharge Statement: "Patient was advised to return to the ER or call 911 if any headaches, dizziness, shortness of breath, chest pain, abdominal pain, bleeding, fevers, or worsening of medical condition. Patient was counseled about treatment plan, medications, possible side effects, patientverbalized understanding. All questions were answered to the best of my ability. This discharge took greater then 30 minutes in planning, reviewing documentation, counseling the patient, and discussing with other team members." ASSESSMENT ASSESSMENT Hospital Course Uneventful Assessment Intractable abdominal pain likely due to pancreatitis Sepsis secondary to acute pancreatitis: Consult for GI Dr. Nino appreciated advised stat transfer for higher level of care for ERCP Acute pancreatitis with lipase of 3500: Continue vancomycin Zosyn pantoprazole Possible gallstone pancreatitis Choledocholithiasis with dilatation of CBD 1.2 cm: Possible transfer to higher level of care, GI consult for Dr. David Balderrama Hypertension Diabetes: Insulin sliding scale Acute dehydration: IV fluid Date of Service: Apr 28, 2025 Billing Provider: DEBBIE SHANE MD Common Visit Codes: [id number] DISCH DAY >30min DEBBIE SHANE MD Apr 28, 2025 15:57
[2025-04-29 01:00] VITALS: BP 138/84; PULSE 85; RESP 18; TEMP 97.6; O2SAT 98
[2025-04-29 05:00] VITALS: BP 145/96; PULSE 85; RESP 18; TEMP 98.7; O2SAT 97
[2025-04-29 05:38] LABS: Basophils # (auto) 0 10 ^3/uL (0-0.2); Basophils % (auto) 0.3 % (0.0-2.0); Eosinophils # (auto) 0.1 10 ^3/uL (0-0.8); Eosinophils % (auto) 1.2 % (0.0-7.0); Hematocrit 41.2 % (36.0-46.0); Hemoglobin 14.1 g/dL (12.2-16.2); Lymphocytes # (auto) 0.9 10 ^3/uL (0.4-5.4); Lymphocytes % (auto) 8.6 % (10.0-50.0); Mean Corpuscular Hemoglobin 29.8 pg (28.0-32.0); Mean Corpuscular Hgb Conc. 34.2 g/dL (32.0-36.0); Mean Corpuscular Volume 87.1 fL (80.0-100.0); Monocytes # (auto) 0.8 10 ^3/uL (0-1.3); Monocytes % (auto) 7.4 % (0.0-12.0); Neutrophils # (auto) 9.1 10 ^3/uL (1.6-8.6); Neutrophils % (auto) 82.5 % (37.0-80.0); Platelet Count (auto) 189 10^3/uL (140-450); Red Blood Cells 4.73 10^6/uL (4.0-5.20); Red Cell Distribution Width 14.8 % (11.8-14.3)
[2025-04-29 09:00] VITALS: BP 122/74; PULSE 84; RESP 18; TEMP 98.4; O2SAT 97
--- NOTE | 2025-04-29 09:34 | DVHPN2 ---
Reviewed: Care Plan, H&P, Labs, Medications, Previous Orders, Radiology Changes from previous H/P or p: No Changes Gastrointestinal: Nausea, Vomiting, Abdominal Pain Objective Vitals Vital Signs Date Time Temp Pulse Resp B/P (MAP) Pulse Ox O2 Delivery O2 Flow Rate FiO2 04/29/25 07:06 84 18 122/74 04/29/25 05:00 98.7 97 98.7 04/28/25 20:00 Room Air* 0 21 Intake/Output Intake and Output 04/29/25 07:00 Intake Total 1450 ml Balance 1450 ml IV Total 1450 ml # Voids 4 Medications Current Medications Medications Dose Ordered Sig/Mariella Route Start Time Stop Time Status Last Admin Dose Admin Piperacillin Sod/ Tazobactam Sod 100 ml @ 25 mls/hr Q8H IV 04/27/25 09:00 04/29/25 08:57 25 MLS/HR Vancomycin HCl 0 ml @ 0 mls/hr UD IV 04/27/25 07:30 Acetaminophen/ Hydrocodone Bitart 1 tab Q4HP PRN PO 04/27/25 07:30 Hold 04/27/25 12:51 1 TAB Ondansetron HCl 4 mg Q4HP PRN IV 04/27/25 07:30 04/29/25 06:36 4 MG Acetaminophen 650 mg Q6HP PRN PO 04/27/25 07:30 04/27/25 19:09 650 MG Nitroglycerin 0.4 mg Q5MINP PRN SL 04/27/25 07:30 Morphine Sulfate 2 mg Q30M PRN IV 04/27/25 08:30 Lactated Ringer's 1,000 ml @ 150 mls/hr Q6H40M IV 04/27/25 07:30 04/29/25 08:57 150 MLS/HR Diagnostic Test (Pha) 1 strip Q6HR 04/27/25 12:00 04/29/25 06:00 1 STRIP Insulin Human Regular Q6HR SC 04/27/25 12:00 04/28/25 06:32 2 UNITS Dextrose 50 ml UD PRN IV 04/27/25 07:30 Hydromorphone HCl 1 mg Q4HPRN PRN IV 04/27/25 15:45 04/29/25 06:36 1 MG Hydromorphone HCl 0.5 mg Q4HPRN PRN IV 04/27/25 15:45 04/28/25 11:30 0.5 MG Vancomycin HCl 250 ml @ 200 mls/hr Q12H IV 04/28/25 01:00 04/29/25 00:49 200 MLS/HR Laboratory Results Laboratory Tests 04/28/25 05:15 04/29/25 04:50 Urinalysis Test 04/26/25 00:00 Urine Color Yellow (Yellow) Urine Clarity Turbid (Clear) H Urine pH 5.0 (5.0-9.0) Urine Specific [place] 1.010 (1.001-1.035) Urine Protein Negative (Negative) Urine Ketones 1+ (Negative) H Urine Blood Negative /uL (Negative) Urine Nitrite Negative (Negative) Urine Bilirubin Negative (Negative) Urine Urobilinogen Normal mg/dL (Negative) Urine Leukocyte Esterase Negative /uL (Negative) Urine RBC None seen /hpf (0 - 4) Urine Microscopic WBC 1 /HPF (0-5) Urine Squamous Epithelial Cells Few /hpf (<5) Urine Bacteria Few /hpf (None Seen) H Urine Mucus Few (None Seen) Urine Glucose Normal mg/dL (Normal) Labs and/or images reviewed: Labs reviewed by me, Image(s) reviewed by me Assessment/Plan Assessment/Plan Intractable abdominal pain likely due to pancreatitis Sepsis secondary to acute pancreatitis: Consult for GI Dr. Nino appreciated Acute pancreatitis with lipase of 3500: Continue vancomycin Zosyn pantoprazole Possible gallstone pancreatitis Choledocholithiasis with dilatation of CBD 1.2 cm: Possible transfer to higher level of care, GI consult for Surgical consult by Dr. Lamont Kim appreciated Transaminitis Hypertension Diabetes: Insulin sliding scale Acute dehydration: IV fluid I spoke to , stroboroma operator at [facility] on 04/28/2025 and she accepted the patient for ERCP manager clinical services working on transfer Examined today. Patient is still having moderate abdominal pain Plan discussed with: Patient My Orders Orders - DEBBIE SHANE MD Procedure Category Date Status Time * Gi Dvh Talent Acquisition Assistant CONS 04/28/25 Transmitted 14:02 * Surgical Consult CONS 04/28/25 Transmitted Discharge DISCHARGE 04/28/25 Transmitted 15:51 * Academic Director CONS 04/28/25 Transmitted Consult 15:53 Lipase LAB 04/30/25 Verified 04:00 Date of Service: Apr 29, 2025 Billing Provider: DEBBIE SHANE MD Common Visit Codes: [id number] INP/OBS CARE(HIGH) DEBBIE SHANE MD Apr 29, 2025 09:34
--- NOTE | 2025-04-29 09:35 | DVHINCON2 ---
Date of service: Apr 29, 2025 Family History: Diabetes mellitus in father Hypertension in mother Allergies: Coded Allergies: Penicillins (Verified Allergy, Unknown, 04/26/25) Home Meds Reported Medications Clonidine Hydrochloride (Clonidine Hcl) 0.1 Mg Tab, 0.1 MG TD DAILY, TAB 04/27/25 Pioglitazone Hydrochloride (ACTOS TABLET) 30 Mg Tb, 1 TAB PO DAILY, #30 TAB 5 Refills 04/27/25 Metformin Hydrochloride (Metformin Hcl) 500 Mg Tab, 1000 MG PO BID for 30 Days, MG 04/27/25 Atorvastatin Calcium (Lipitor) 40 Mg Tab, 1 TAB PO QPM, #90 TAB 1 Refill 04/27/25 Lisinopril (Lisinopril) 20 Mg Tab, 20 MG PO BID for 30 Days, MG 04/27/25 Gabapentin (Gabapentin) 100 Mg Cap, 200 MG PO TID 04/27/25 Aspirin (Aspirin) 81 Mg Tab, 81 MG PO DAILY, TAB 04/27/25 Nifedipine (Nifedipine Er) 90 Mg Tab, 1 TAB PO DAILY, #30 TAB 5 Refills 04/27/25 Vital Signs Vital Signs Date Time Temp Pulse Resp B/P (MAP) Pulse Ox O2 Delivery O2 Flow Rate FiO2 04/29/25 07:06 84 18 122/74 04/29/25 05:00 98.7 97 98.7 04/28/25 20:00 Room Air* 0 21 Labs/Diagnostic Data Labs Test 04/29/25 06:29 04/29/25 04:50 04/28/25 05:15 04/27/25 00:17 Range/Units POC Glucose 125 H 70-106 mg/dl White Blood Count 11.0 H 4.4-10.8 10^3/uL Red Blood Count 4.73 4.0-5.20 10^6/uL Hemoglobin 14.1 12.2-16.2 g/dL Hematocrit 41.2 36.0-46.0 % Mean Corpuscular Volume 87.1 80.0-100.0 fL Mean Corpuscular Hemoglobin 29.8 28.0-32.0 pg Mean Corpuscular Hemoglobin Concent 34.2 32.0-36.0 g/dL Red Cell Distribution Width 14.8 H 11.8-14.3 % Platelet Count 189 140-450 10^3/uL Mean Platelet Volume 8.5 6.9-10.8 fL Neutrophils (%) (Auto) 82.5 H 37.0-80.0 % Lymphocytes (%) (Auto) 8.6 L 10.0-50.0 % Monocytes (%) (Auto) 7.4 0.0-12.0 % Eosinophils (%) (Auto) 1.2 0.0-7.0 % Basophils (%) (Auto) 0.3 0.0-2.0 % Neutrophils # (Auto) 9.1 H 1.6-8.6 10 ^3/uL Lymphocytes # (Auto) 0.9 0.4-5.4 10 ^3/uL Monocytes # (Auto) 0.8 0-1.3 10 ^3/uL Eosinophils # (Auto) 0.1 0-0.8 10 ^3/uL Basophils # (Auto) 0 0-0.2 10 ^3/uL Nucleated Red Blood Cells 0.0 % Creatinine 0.36 L 0.550-1.02 mg/dL Glomerular Filtration Rate Calc 124 >90 mL/min Sodium Level 138 136-145 mmol/L Potassium Level 3.3 L 3.5-5.1 mmol/L Chloride Level 105 98-107 mmol/L Carbon Dioxide Level 25 20-31 mmol/L Anion Gap 8 5-15 Blood Urea Nitrogen 11 9-23 mg/dL BUN/Creatinine Ratio 28.2 H 10.0-20.0 Serum Glucose 143 H 74-106 mg/dL Calcium Level 9.2 8.7-10.4 mg/dL Total Bilirubin 5.8 H 0.2-1.0 mg/dL Aspartate Amino Transferase (AST) 95 H 13-40 U/L Alanine Aminotransferase (ALT) 131 H 7-40 U/L Alkaline Phosphatase 460 H 46-116 U/L Total Protein 6.1 5.7-8.2 g/dL Albumin 3.6 3.2-4.8 g/dL Troponin I High Sensitivity 6 </=34 ng/L Test 04/26/25 23:46 04/26/25 00:00 Range/Units Hemoglobin A1c 6.8 H <5.7 % A1C Lactic Acid Level 1.8 0.4-2.0 mmol/L Lipase > 3500 H 12-53 U/L Urine Color Yellow Yellow Urine Clarity Turbid H Clear Urine pH 5.0 5.0-9.0 Urine Specific [place] 1.010 1.001-1.035 Urine Protein Negative Negative Urine Ketones 1+ H Negative Urine Blood Negative Negative /uL Urine Nitrite Negative Negative Urine Bilirubin Negative Negative Urine Urobilinogen Normal Negative mg/dL Urine Leukocyte Esterase Negative Negative /uL Urine RBC None seen 0 - 4 /hpf Urine Microscopic WBC 1 0-5 /HPF Urine Squamous Epithelial Cells Few <5 /hpf Urine Bacteria Few H None Seen /hpf Urine Mucus Few None Seen Urine Glucose Normal Normal mg/dL Assessment [id number] AFEBRILE VSS ABD SOFT TENDER RUQ LFT ELEVATED R/O AC CHOLECYSTITIS CHOLEDOCHOLITHIASIS PANCREATITIS TRANSFER TO HIGHER LEVEL OF CARE TRANSFER PROCESS ONGOING PT AND FAMILY AWARE Plan discussed with: Other FARHAD MORE MD Apr 29, 2025 09:35
--- NOTE | 2025-04-29 09:53 | DVHINCON2 ---
DATE OF CONSULTATION: 04/29/2025 HISTORY OF PRESENT ILLNESS: This patient 49 years old coming in with upper abdominal pain, some nausea, no vomiting. No constipation or diarrhea. No hematemesis or melena. No bleeding per rectum. PAST MEDICAL HISTORY: Hypertension and diabetes. PAST SURGICAL HISTORY: . Workup at this facility shows that she has gallstones and she has a possibility of CBD stone. At this point, she also has a possible lipase level elevation suggesting pancreatitis. PHYSICAL EXAMINATION: VITAL SIGNS: Currently, she is afebrile, stable signs. HEENT: With no evidence of pallor, cyanosis or jaundice. NECK: Supple, nontender, with no thyromegaly or lymphadenopathy. CHEST AND LUNGS: Clear. HEART: Within normal limits. ABDOMEN: Soft. Tender in the upper abdomen. NEUROLOGIC: Not assessed. EXTREMITIES: Unremarkable. CLINICAL IMPRESSION: Rule out choledocholithiasis as per the MRCP. She has pancreatitis complicating the clinical condition. PLAN: Consider transfer to high level of care for possible ERCP and resolution of pancreatitis followed by gallbladder surgery as indicated. MD EDGAR Love/GÉNESIS TID: [id number] RECEIPT: [id number] cc: Marco Antonio Pizano MD
[2025-04-29 13:00] VITALS: BP 144/89; PULSE 80; RESP 18; TEMP 98.5; O2SAT 99
[2025-04-29] MEDS: VANCOMYCIN 1GM/200ML PM 200 ML IV SCH (15:36)
[2025-04-29 16:11] LABS: Basophils # (auto) 0 10 ^3/uL (0-0.2); Basophils % (auto) 0.1 % (0.0-2.0); Eosinophils # (auto) 0.1 10 ^3/uL (0-0.8); Eosinophils % (auto) 0.9 % (0.0-7.0); Hematocrit 44.1 % (36.0-46.0); Hemoglobin 14.8 g/dL (12.2-16.2); Lymphocytes # (auto) 1.1 10 ^3/uL (0.4-5.4); Lymphocytes % (auto) 9.2 % (10.0-50.0); Mean Corpuscular Hemoglobin 29.5 pg (28.0-32.0); Mean Corpuscular Hgb Conc. 33.5 g/dL (32.0-36.0); Mean Corpuscular Volume 88.1 fL (80.0-100.0); Monocytes # (auto) 0.9 10 ^3/uL (0-1.3); Neutrophils # (auto) 10.2 10 ^3/uL (1.6-8.6); Neutrophils % (auto) 82.8 % (37.0-80.0); Nucleated Red Blood Cells % 0.1 %; Platelet Count (auto) 202 10^3/uL (140-450); White Blood Cell 12.4 10^3/uL (4.4-10.8)
--- NOTE | 2025-04-29 16:16 | DVHPN2 ---
Progress Note - Dictate Date Seen: Apr 29, 2025 Medical Necessity Reason Pt with a Central, PICC or Fol: No Subjective Patient was still complaints of abdominal pain probably minimally better no nausea no vomiting no fever vital signs Vital Sign Date Time Temp Pulse Resp B/P (MAP) Pulse Ox O2 Delivery O2 Flow Rate FiO2 04/29/25 13:00 98.5 80 18 144/89 (107) 99 98.5 04/29/25 08:00 Room Air* 0 21 Total Intake and Output 04/28/25 04/28/25 04/29/25 15:00 23:00 07:00 Intake Total 1100 ml 350 ml Balance 1100 ml 350 ml medications Current Medications Medications Dose Ordered Sig/Mariella Route Start Time Stop Time Status Last Admin Dose Admin Piperacillin Sod/ Tazobactam Sod 100 ml @ 25 mls/hr Q8H IV 04/27/25 09:00 04/29/25 08:57 25 MLS/HR Vancomycin HCl 0 ml @ 0 mls/hr UD IV 04/27/25 07:30 Acetaminophen/ Hydrocodone Bitart 1 tab Q4HP PRN PO 04/27/25 07:30 Hold 04/27/25 12:51 1 TAB Ondansetron HCl 4 mg Q4HP PRN IV 04/27/25 07:30 04/29/25 06:36 4 MG Acetaminophen 650 mg Q6HP PRN PO 04/27/25 07:30 04/27/25 19:09 650 MG Nitroglycerin 0.4 mg Q5MINP PRN SL 04/27/25 07:30 Morphine Sulfate 2 mg Q30M PRN IV 04/27/25 08:30 Lactated Ringer's 1,000 ml @ 150 mls/hr Q6H40M IV 04/27/25 07:30 04/29/25 15:36 150 MLS/HR Diagnostic Test (Pha) 1 strip Q6HR 04/27/25 12:00 04/29/25 12:21 1 STRIP Insulin Human Regular Q6HR SC 04/27/25 12:00 04/28/25 06:32 2 UNITS Dextrose 50 ml UD PRN IV 04/27/25 07:30 Hydromorphone HCl 1 mg Q4HPRN PRN IV 04/27/25 15:45 04/29/25 06:36 1 MG Hydromorphone HCl 0.5 mg Q4HPRN PRN IV 04/27/25 15:45 04/28/25 11:30 0.5 MG Vancomycin HCl 200 ml @ 160 mls/hr Q8H IV 04/29/25 15:00 04/29/25 15:36 160 MLS/HR objective Abdomen is still photographer no rigidity no guarding no masses no distention laboratory and microbiology Laboratory Tests 04/29/25 16:00 04/29/25 04:50 04/28/25 05:15 Test 04/28/25 05:15 Range/Units Serum Glucose 143 H 74-106 mg/dL Assessment/Plan Patient has got severe pancreatitis now secondary to choledocholithiasis Seen by surgeon also recommends transfer to referral center Labs are pending We will follow closely with the antibiotics PPIs and await the transfer Thank you Dr. Nino Dietary Evaluation Review Recommendations by RD: Dietary education by RD Comments: 1) If patient remains NPO > 7 days, consider EN/TPN to meet at least 75% of estimated daily needs 2) Advance to 60g CCHO low-fat diet when medically feasible, pending [employer] approval 3) Refer to outpatient RD/[facility] for weight management 4) Follow-up with gastroenterology 5) Continue to monitor I&O, labs, and skin integrity Expected Outcomes/Goals: 1) patient to receive nutrition support within 7 days of NPO status 2) labs and GI symptoms to improve 3) diet to advance 4) f/u in 2-3 days Plan discussed with: Patient KERRI NINO MD Apr 29, 2025 16:16
[2025-04-29 16:55] VITALS: BP 159/98; PULSE 95; RESP 21; TEMP 98.1; O2SAT 95
== END 2025-04-29 19:00 | disposition short-term general hospital (02) | DRG 720 ==
LOC: ER 23:26 → OVERFLOW 04-27 07:20 → CENTRAL 04-27 14:55
DX: A41.9 Sepsis, unspecified organism (principal); K85.10 Biliary acute pancreatitis without necrosis or infection; K80.70 Calculus of gallbladder and bile duct without cholecystitis without obstruction; E86.0 Dehydration; E11.9 Type 2 diabetes mellitus without complications; I10 Essential (primary) hypertension; E66.9 Obesity, unspecified; R79.89 Other specified abnormal findings of blood chemistry; R74.01 Elevation of levels of liver transaminase levels; Z98.891 History of uterine scar from previous surgery; Z88.0 Allergy status to penicillin; Z82.49 Family history of ischemic heart disease and other diseases of the circulatory system; Z83.3 Family history of diabetes mellitus; Z79.82 Long term (current) use of aspirin; Z79.899 Other long term (current) drug therapy; Z79.84 Long term (current) use of oral hypoglycemic drugs; Z68.38 Body mass index [BMI] 38.0-38.9, adult
CPT/HCPCS: 36415; 74176; 74181; 80053; 80202; 81001; 82565; 82962; 83036; 83605; 83690; 84484; 85025; 96365; 96375; 99291; G0378; J1815; J2405; J2543